=== PATIENT | male | born 2000 | race Caucasian/White ===

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

== ENCOUNTER 2022-10-24 14:02 | Emergency (ER) | payer OTHER, SELFPAY ==
[2022-10-24 14:13] VITALS: BP 131/62; PULSE 83; RESP 16; TEMP 37.1; O2SAT 98
--- NOTE | 2022-10-24 14:17 | ED.URI ---
HPI - URI/Sore Throat General Chief Complaint: Upper Respiratory Infection Stated Complaint: cold flu Source: patient and RN notes reviewed History of Present Illness HPI Narrative: 21 yo M presents with mom at side. Pt states he has been congested and having a runny nose x 2 days. Pt denies any sore throat, ear pain, PALACIOS, chest pain, SOB, N/V/D, fevers, or chills. Pt has taken Zycam and Mucinex with minimal relief. Pt tested himself for Covid 2x at home with negative results. Related Data Home Medications Medication Instructions Recorded Confirmed omeprazole 40 mg capsule,delayed mg 10/24/22 release Allergies Allergy/AdvReac Type Severity Reaction Status Date / Time No Known Allergies Allergy Unverified 05/20/13 13:54 Review of Systems Review of Systems: CONSTITUTIONAL: Denies fever, chills, or sweats. EYES: Denies visual changes, redness, or discharge. ENT: congestion and runny nose CARDIOVASCULAR: Denies chest pain, palpitations, or edema. RESPIRATORY: Denies cough or dyspnea. GASTROINTESTINAL: Denies abdominal pain, nausea, vomiting, or diarrhea. GENITOURINARY: Denies dysuria or hematuria. SKIN: Denies rash or itching. MUSCULOSKELETAL: Denies back pain, joint pain, or myalgia. NEUROLOGIC: Denies headache, numbness, or weakness. [facility] Past Medical History Medical History No active medical problems Social History Social History (Updated 11/26/21 @ 17:32 by Patricio Sandhu DO) Tobacco type: e-cigarettes/vaping Substance use: never Comments At the time of my signature, I reviewed and agree with the nursing past medical, surgical, social, and family history. There is no relevant family history pertinent to the patient complaint. Exam Narrative: GENERAL: This is a well-nourished, well-developed patient, in no apparent distress. HEAD: normocephalic, atraumatic. EYES: PERRL. Sclera clear/white. Vision is grossly intact. EARS: External ears normal, auditory canals clear and without drainage, TMs normal without perforation. Hearing grossly intact. NOSE: External nose normal with no obvious nasal discharge, nares without redness, no rhinorrhea. THROAT: Mucous membranes moist, posterior pharynx clear. NECK: Neck supple, non-tender without lymphadenopathy, masses or thyromegaly. CARDIOVASCULAR: Regular rate and rhythm without murmurs, gallops, or rubs. RESPIRATORY: Clear to auscultation. Breath sounds equal bilaterally. No wheezes, rales, or rhonchi. GASTROINTESTINAL: Abdomen soft, non-tender, nondistended. Bowel sounds are active. No hepato-splenomegaly, or palpable masses. No guarding. SKIN: warm, intact with no suspicious lesions or rash, good texture and turgor. NEURO: awake, alert, and oriented to person, place and time. There were no obvious focal neurologic abnormalities. Course Course Level of Care: Express Care Visit Vital Signs Vital signs: Vital Signs Temperature 98.8 F 10/24/22 14:13 Pulse Rate 83 10/24/22 14:13 Respiratory Rate 16 10/24/22 14:13 Blood Pressure 131/62 10/24/22 14:13 Pulse Oximetry 98 10/24/22 14:13 Oxygen Delivery Room Air 10/24/22 14:13 Temperature 98.8 F 10/24/22 14:13 Pulse Rate 83 10/24/22 14:13 Respiratory Rate 16 10/24/22 14:13 Blood Pressure 131/62 10/24/22 14:13 Pulse Oximetry 98 10/24/22 14:13 Oxygen Delivery Room Air 10/24/22 14:13 Reviewed MDM - URI/Sore Throat MDM Narrative Medical decision making narrative: Viral illness may last between 7-12days; antibiotic is NOT recommended at this time. Recommend antihistamine such as Benadryl at night time and Claritin/Zyrtec/Yuki during the day. Increase your Vitamin C intake. Warm baths are comforting for children. Steam from hot showers help with congestion. Cough syrup may cause drowsiness; avoid driving or take it at night time. Also, recommend symptomatic treatment includes: rest, fluids, incr
== END 2022-10-24 14:35 | disposition home or self-care (01) ==
PROVIDERS: Emergency Provider Nurse Practitioner Family; PCP Physician Assistant
DX: J06.9 Acute upper respiratory infection, unspecified (principal); F17.290 Nicotine dependence, other tobacco product, uncomplicated
CPT/HCPCS: 99213; G0463

== ENCOUNTER 2023-01-08 08:40 | Emergency (ER) | payer OTHER, SELFPAY ==
--- NOTE | ~2023-01-08 | CT_ITS ---
EXAMINATION: CT abdomen pelvis w con INDICATION: Right inguinal pain and swelling TECHNIQUE: Computed tomographic images of the abdomen and pelvis were obtained after the administrati on of 100 cc of Omnipaque 350 intravenous contrast. The dose-length product (DLP) was 332.20 mGy-cm. Automated exposure control and iterative reconstruction technique were employed. COMPARISON: 11/26/2021 FINDINGS: Minimal dependent atelectasis is present in the lung bases. The heart size is normal. There is a 3 mm nodule of the right lower lobe, likely old granulomatous disease. Gynecomastia is noted. T he liver, spleen, pancreas, gallbladder, and adrenal glands are normal. Hypoattenuating lesions in th e kidneys, measuring up to 2 mm on the left, are too small to characterize but likely represent cysts . No free intraperitoneal gas or evidence of bowel obstruction. The appendix is normal. There are no pathologically enlarged abdominal lymph nodes. There is mild anterior cellulitis overlying the right hip with mild right inguinal lymphadenopathy. IMPRESSION: 1. Mild anterior cellulitis overlying the right hip with mild associated right inguinal lymphadenopat hy. Reviewed, dictated and finalized at location [facility]. IMPRESSION: 1. Mild anterior cellulitis overlying the right hip with mild associated right inguinal lymphadenopathy.
[2023-01-08 08:45] VITALS: BP 120/79; PULSE 86; RESP 16; TEMP 36.9; O2SAT 99
--- NOTE | 2023-01-08 08:59 | ED.GENADULT ---
HPI - General Adult General Chief complaint: Urogenital-Male Stated complaint: swollen pelvic area Time Seen by Provider: 01/08/23 08:51 History of Present Illness HPI narrative: 22-year-old male presented emerged department for evaluation of right sided groin pain that started approximately 2 days ago. Patient states he has been doing increased lifting while at the gym and states this may have aggravated the right groin pain. Patient denies any change in bowel habits but does have increased right groin pain. Patient denies any testicular pain with this. Patient denies any associated nausea vomiting diarrhea. Patient has no prior history of inguinal hernia. Patient has noted some erythema over the right groin. Patient also has tick bites that are just lateral to the groin. Related Data Home Medications Medication Instructions Recorded Confirmed omeprazole 40 mg capsule,delayed mg 10/24/22 release Allergies Allergy/AdvReac Type Severity Reaction Status Date / Time No Known Allergies Allergy Verified 01/08/23 08:48 Review of Systems Review of Systems: All systems reviewed & are unremarkable except as noted in HPI and below PMFSH Past Medical History Medical History No active medical problems Social History Social History (Updated 11/26/21 @ 17:32 by Patricio Sandhu DO) Tobacco type: e-cigarettes/vaping Substance use: never Exam Narrative: APPEARANCE: Well appearing, no pain, no distress, well-nourished. HEAD: normocephalic, atraumatic. EYES: PERRLA/EOMI, conjunctivae clear. NOSE: Normal no drainage NECK: Supple. No adenopathy, no masses. RESPIRATORY: Airway patent, respirations nonlabored. Clear to auscultation bilaterally, no rales, rhonchi, wheezing. CARDIOVASCULAR: Regular rate and rhythm without murmurs rubs or gallops. ABDOMINAL: Soft, nondistended, normal bowel sounds, normal testicular exam, swelling at the right inguinal canal. MUSCULOSKELETAL: Moves all extremities. Strength/ROM intact, No edema, No calf tenderness. NEURO: Alert. Cranial nerves II through XII intact. Grossly intact SKIN: Mild erythema over right groin. 3 tick bites just lateral to the groin. No tics present Course Course Emergency Course: 22-year-old male presented to the ED for evaluation of right groin/inguinal pain. CT scan was ordered and did show evidence of a cellulitis. Patient states he did have tick bites near the site. Patient was treated with doxycycline in the ED and discharged home with doxycycline. Patient was encouraged to do Tylenol ibuprofen for pain control. Patient and mother updated on the results of the work-up. Patient was afebrile with a mild leukocytosis of 10.1. Patient's CMP is within normal limits. UA showed no evidence of urinary tract infection. Patient was comfortable with the plan for discharge and close follow-up. All questions concerns were addressed. Vital Signs Vital signs: Vital Signs Temperature 98.5 F 01/08/23 08:45 Pulse Rate 86 01/08/23 08:45 Respiratory Rate 16 01/08/23 08:45 Blood Pressure 120/79 01/08/23 08:45 Pulse Oximetry 99 01/08/23 08:45 Temperature 98.5 F 01/08/23 08:45 Pulse Rate 81 01/08/23 12:08 Respiratory Rate 18 01/08/23 12:08 Blood Pressure 113/72 01/08/23 12:08 Pulse Oximetry 99 01/08/23 12:08 Medical Decision Making Differential Diagnosis Differential Diagnosis: Cellulitis, inguinal hernia, abscess, erythema migrans Vital Signs Vital Signs: Vital Signs Temperature 98.5 F 01/08/23 08:45 Pulse Rate 86 01/08/23 08:45 Respiratory Rate 16 01/08/23 08:45 Blood Pressure 120/79 01/08/23 08:45 Pulse Oximetry 99 01/08/23 08:45 Temperature 98.5 F 01/08/23 08:45 Pulse Rate 81 01/08/23 12:08 Respiratory Rate 18 01/08/23 12:08 Blood Pressure 113/72 01/08/23 12:08 Pulse Oximetry 99 01/08/23 12:08 Lab Data
[2023-01-08 10:05] LABS: Basophils Absolute Auto 0.1 K/mm3 (0.0-0.1); Basophils Percent Auto 0.6 % (0.2-1.2); Eosinophils Absolute Auto 0.5 K/mm3 (0-0.3); Eosinophils Percent Auto 5.1 % (0-4.4); Hematocrit 44.1 % (42.0-52.0); Hemoglobin 15.8 g/dL (14.0-18.0); Immature Granulocyte Absolute 0.04 K/mm3 (0.00-0.031); Immature Granulocyte Percent A 0.4 % (0-0.5); Lymphocytes Absolute Auto 3.38 K/mm3 (0.9-3.2); Lymphocytes Percent Auto 33.6 % (18.3-44.2); Mean Corpuscular HGB Conc 35.8 g/dl (32-36); Mean Corpuscular Hemoglobin 28.7 pg (26-34); Mean Corpuscular Volume 80.2 fl (80-100); Mean Platelet Volume 9.4 fl (7.4-10.4); Monocytes Absolute Auto 0.7 K/mm3 (0.1-0.6); Monocytes Percent Auto 7.3 % (2.6-8.5); Neutrophils Absolute Auto 5.3 K/mm3 (1.3-6.7); Platelet Count Result 293 k/mm3 (150-375); Red Cell Distribution Width 11.7 % (11.5-14.5); White Blood Count 10.1 K/mm3 (4.5-10.0)
[2023-01-08 10:09] LABS: Appearance Urine Clear (Clear); Bilirubin Urine Negative (Negative); Blood Urine Negative (Negative); Color Urine Yellow (Yellow); Glucose Urine UA Negative (Negative); Ketones Urine Negative (Negative); Leukocyte Esterase Ur Negative LEU/UL (Negative); Nitrate Urine Negative (Negative); Protein Urine Negative (Negative); Specific Grav Ur 1.013 (1.001-1.035); pH Urine 6.5 (5.0-9.0)
[2023-01-08 10:15] LABS: Add Urine Microscopic? NO
[2023-01-08 10:16] LABS: Prothrombin Time 13.5 Seconds (11.1-14.7)
[2023-01-08 10:17] LABS: Alanine Aminotransferase 36 U/L (6-50); Albumin Level 4.5 g/dL (3.5-5.1); Alkaline Phosphatase 110 U/L (38-126); Anion Gap 5 mmol/L (8-16); Aspartate Amino Transferase 27 U/L (17-59); Bilirubin,Total 0.8 mg/dL (0.2-1.3); Blood Urea Nitrogen 12 mg/dL (9-20); Calcium 9.3 mg/dL (8.4-10.2); Carbon Dioxide 34 mmol/L (22-30); Chloride 99 mmol/L (98-107); Estimated CRCL calculation 103 ml/min; Estimated Glomerular Filt Rate > 60; Glucose 100 mg/dL (65-110); Partial Thromboplastin Time 30.5 SECONDS (22.3-36.8); Potassium 3.6 mmol/L (3.4-5.0); Sodium 138 mmol/L (137-145)
[2023-01-08 10:18] LABS: Lactic Acid Reflex 0.9 mmol/L (0.7-2.0)
[2023-01-08 12:08] VITALS: BP 113/72; PULSE 81; RESP 18; O2SAT 99
[2023-01-08] MEDS: DOXYCYCLINE HYCLATE 100 MG TABLET PO (12:38)
== END 2023-01-08 12:45 | disposition home or self-care (01) ==
PROVIDERS: Emergency Provider Emergency Medicine; PCP Physician Assistant
DX: L03.314 Cellulitis of groin (principal); S30.861A Insect bite (nonvenomous) of abdominal wall, initial encounter; R59.1 Generalized enlarged lymph nodes; F17.290 Nicotine dependence, other tobacco product, uncomplicated; W57.XXXA Bitten or stung by nonvenomous insect and other nonvenomous arthropods, initial encounter
CPT/HCPCS: 36415; 74177; 80053; 81003; 83605; 85025; 85610; 85730; 87491; 87591; 99284; A9270; J0696; Q9967

== ENCOUNTER 2024-04-25 16:28 | Emergency (ER) | payer OTHER, SELFPAY ==
[2024-04-25 16:35] VITALS: BP 113/60; PULSE 86; RESP 16; TEMP 37.1; O2SAT 98
--- NOTE | 2024-04-25 17:36 | ED.SKABFB ---
HPI - Skin/Abscess/Foreign Bdy General Chief complaint: Skin/Abscess/Foreign Body Stated complaint: bite on right elbow area Time Seen by Provider: 04/25/24 17:05 Source: patient, RN notes reviewed and old records reviewed Mode of arrival: ambulatory Limitations: no limitations History of Present Illness HPI narrative: 23 year old male who presents to [facility]. ith complaints of some tyoe of insect bite to his right inner elbow region he noticed 2-3 days ago. He reports that now he has small darker center with surrounding redness of site with some swelling. Patinet denies any fevers chills or sweats. Patient has 0.1 inner darker center with 1.5cm by 2.5cm redness around inner lesion. Patient reports that he has used Calamine lotion to site. MD complaint: insect bite/sting (with surrounding redness) Onset (ago): day(s) (2-3 days) Severity: moderate Quality: pruritic Treatments prior to arrival: other (calamine lotion) Related Data Home Medications Medication Instructions Recorded Confirmed omeprazole 40 mg capsule,delayed 40 mg PO DAILY 10/24/22 04/25/24 release Allergies Allergy/AdvReac Type Severity Reaction Status Date / Time No Known Allergies Allergy Verified 04/25/24 16:44 Review of Systems Review of Systems: CONSTITUTIONAL: Denies fever, chills, or sweats. CARDIOVASCULAR: Denies chest pain, palpitations, or edema. RESPIRATORY: Denies cough or dyspnea. SKIN: Reports bite on right inner axillary area with surrounding redness, no drainage noted MUSCULOSKELETAL: Denies joint pain or myalgia. NEUROLOGIC: Denies headache, numbness, or weakness. All systems reviewed & are unremarkable except as noted in HPI and below PMFSH Past Medical History Medical History GERD (gastroesophageal reflux disease) Social History Social History Tobacco type: e-cigarettes/vaping Alcohol intake: current Alcohol use details: social Substance use: never Gender identity (if verbalized by the patient): Male Comments At time of signature, agree with nursing past medical, surgical, social and family history. There is no relevant family history pertinent to the presenting complaint Exam Narrative: GENERAL: Well-appearing, well-nourished, and in no acute distress. HEAD: Normocephalic, atraumatic. EYES: PERRLA, conjunctivae clear, and EOMI. ENT: Mucous membranes moist. Oropharynx without edema, erythema or lesions. NECK: Supple. No lymphadenopathy CHEST: Clear to auscultation. No respiratory distress.SAO2 98% on room air HEART: Regular rate and rhythm. SKIN: Warm, dry.?0.1cm inner lesion with surounding redness 1.5cm X 2.5cm which is itching with minimal swelling. NEURO:? Alert and oriented x3. PSYCH: Normal mood and affect Course Course Emergency Course: Patient is aware of diagnosis, understands and agrees to treatment plan.? Anticipatory guidance given.? Patient agrees to follow-up as directed and is aware of reasons to seek care at the emergency department. Portions of this record may have been created with voice recognition software Level of Care: Express Care Visit Vital Signs Vital signs: Vital Signs Temperature 37.1 C 04/25/24 16:35 Pulse Rate 86 04/25/24 16:35 Respiratory Rate 16 04/25/24 16:35 Blood Pressure 113/60 04/25/24 16:35 Pulse Oximetry 98 04/25/24 16:35 Oxygen Delivery Room Air 04/25/24 16:35 Temperature 37.1 C 04/25/24 16:35 Pulse Rate 86 04/25/24 16:35 Respiratory Rate 16 04/25/24 16:35 Blood Pressure 113/60 04/25/24 16:35 Pulse Oximetry 98 04/25/24 16:35 Oxygen Delivery Room Air 04/25/24 16:35 Reviewed MDM - Skin/Abscess/Foreign Bdy MDM Narrative Medical decision making narrative: Does not appear at this time to be erythema multiforme, bullous, SJS, TEN; no evidence at this time to suggest
== END 2024-04-25 17:55 | disposition home or self-care (01) ==
PROVIDERS: Emergency Provider Registered Nurse; PCP Physician Assistant
DX: S50.361A Insect bite (nonvenomous) of right elbow, initial encounter (principal); L03.114 Cellulitis of left upper limb; W57.XXXA Bitten or stung by nonvenomous insect and other nonvenomous arthropods, initial encounter; F17.290 Nicotine dependence, other tobacco product, uncomplicated; K21.9 Gastro-esophageal reflux disease without esophagitis
CPT/HCPCS: 99213; G0463